=== PATIENT | female | born 1975 | race African-American/Black ===

== ENCOUNTER 2017-07-22 00:21 | Emergency (ER) | payer OTHER ==
--- NOTE | 2017-07-22 01:12 | ED Physician Documentation ---
Syncope/Near Syncope - HISTORIAN Historian: patient, spouse - HPI Stated Complaint: FAINTED Chief Complaint: Syncope Additional Information: PT PLAYING DOMINOS REACHED ACROSS TABLE OVER BALANCED FELL TO FLOOR. POSSIBLY ALTERED FOR FEW SECONDS. AWOKE COHERENT NO SEIZURE LIKE ACTIONS NOTICED FEELS FINE NOW. CAN WALK HEELS ANDTOES DONTA RHOMERG OK FINGER TO NOSEOK. NO PRONATOR DRIFT. PTS SPEECH COHERENT. FEELS TOTALLY NORMAL NOW. SLEPT ONLY 4 HRS LAST NOCT AND ON THE FLOOR. NO PRONATOR DRIFT' FSBS =120 Witnessed: Yes Witnessed By: family, friend, bystander Position at Time of Episode: sitting Symptoms Prior to Episode: other Character of Events(s): almost passed out. denies: focal seizure, generalized seizure, tonic seizure Symptoms after Event: denies: confused after event, incontinent of urine, incontinent of stool, breathing shallow, breathing stopped Location of Injury: none Associated Symptoms: feels back to normal. denies: chest pain, shortness of breath, abdominal pain, nausea, vomiting - ROS CONST: denies: recent illness, fever, cough EYES/ENT: none. denies: problems with vision GI/: denies: diarrhea, black stools MS/SKIN/LYMPH: denies: joint pain, leg swelling, swollen glands NEURO/PSYCH: denies: confusion, anxiety, depression - PAST HX Cardiac Disease: none PE Risk Factors: hypertension Surgeries/Procedures: other (BENIGNCYST RT BREAST) Allergies/Adverse Reactions: Allergies Allergy/AdvReac Type Severity Reaction Status Date / Time No Known Allergies Allergy Verified 07/22/17 00:26 Home Medications: Ambulatory Orders Medication Instructions Recorded Triamterene/Hydrochlorothiazid 1 each PO QDAY 07/22/17 [Triamterene-Hctz 37.5-25 mg Cp] - SOCIAL HX Smoking History: non-smoker Alcohol Use: none Drug Use: none - FAMILY HX Family History: none - VITAL SIGNS Vital Signs: Vital Signs Temp Pulse Resp BP Pulse Ox 98.2 F 76 16 120/85 98 07/22/17 00:26 07/22/17 00:26 07/22/17 00:26 07/22/17 00:26 07/22/17 00:26 - REVIEWED ASSESSMENTS Nursing Assessment Reviewed: Yes Vitals Reviewed: Yes Syncope Physical Exam - Physical Exam General Appearance: no acute distress EENT: nml eye inspection, tongue abrasion, laceration. No: scleral icterus, pale conjunctivae, pupils unequal, EOM Palsy Neck/Back: neck supple, non-tender, no carotid bruit Respiratory: no resp distress, chest non-tender, breath sounds normal CVS: reg rate & rhythm Abdomen: non-tender. No: guarding, rebound Rectal: heme negative stool Extremities: non-tender, normal range of motion, no evidence of injury, no edema , other (RHOMBERG = NORMAL WALKS WELL HEELS; ANDTOES) - Neuro/Psych Higher Functions: oriented x3, no evidence of acute CVA Cranial Nerves: nml as tested. denies: tongue deviation (L), tongue deviation ( R), pronator drift Cerebellar: nml as tested, abnml gait. denies: abnml Romberg test, abnml finger -nose-finger Sensorimotor: nml motor response, nml sensory response Discharge Clincal Impression: SYNCOPE/NEAR SYHNCOPE, EXCESS LOSS SLEPL Condition: Good Disposition: 01 HOME, SELF-CARE Decision to Admit: NO Decision Time: 01:17
[2017-07-22 01:17] VITALS: BP 122/80
== END 2017-07-22 01:10 | disposition home or self-care (01) ==
LOC: ED 00:21
DX: R55 Syncope and collapse (principal); Z72.820 Sleep deprivation
CPT/HCPCS: 99283